=== PATIENT | male | born 1945 | race Caucasian/White ===

== ENCOUNTER 2017-11-20 12:19 | Outpatient (CLI) | payer MEDICARE ==
--- NOTE | 2017-11-20 15:29 | CT ---
CT ABDOMEN AND PELVIS WITHOUT IV CONTRAST: INDICATIONS: History of hematuria and hydronephrosis and surgery for staphylococcus infection in the lower abdomen . COMPARISON: Prior renal ultrasound, dated 10/31/2016, splenic ultrasound, dated 02/23/2004, and also CT thorax, d ated 06/29/2016. FINDINGS: The severe left hydronephrosis is stable to the 2016 examination. There is a prominent left hydroure ter. There is a 9.7 mm stone within the left distal ureter. There is severe diffuse cortical atroph y of the left kidney. There are prominent renal vascular calcifications involving the right kidney. There is a 3 mm calcul us within the mid pole of the right kidney. There is a loculated type effusion involving the left lower hemithorax. There is suspected compressi ve atelectasis involving the left lower lobe. A component of pneumonia cannot be entirely excluded. The previously seen right-sided pleural effusion has resolved. There is a tiny hypodensity within the left hepatic lobe that is stable from 2016, likely reflecting a small cyst. The unopacified pancreas and the right adrenal gland are normal appearing. There is s light hypertrophy of the left adrenal gland, which is stable to the prior. The unopacified spleen is unremarkable. There are scattered colonic diverticula involving the colon without evidence of active diverticulitis . No definite acute osseous abnormality is evident. IMPRESSION: 1. A 9.7 mm stone within the distal left ureter causing stable severe left hydronephrosis and hydrou reter. There is prominent cortical atrophy of the left kidney. This is likely a longstanding obstru ction. 2. Right nephrolithiasis. 3. Loculated left-sided pleural effusion with air space opacity involving the left lower lobe that i s most suspicious for compressive atelectasis; however, pneumonia is not excluded. 4. Moderate sized hiatal hernia. 5. Stable left hepatic lobe cyst. 6. Diverticulosis. POS: [facility]
== END 2017-11-20 12:20 | disposition home or self-care (01) ==
LOC: CT 12:19
PROVIDERS: ATTEND Urology
DX: Z12.5 Encounter for screening for malignant neoplasm of prostate (principal); N13.39 Other hydronephrosis; N20.2 Calculus of kidney with calculus of ureter; N13.4 Hydroureter; J90 Pleural effusion, not elsewhere classified; K44.9 Diaphragmatic hernia without obstruction or gangrene; K76.89 Other specified diseases of liver; K57.90 Diverticulosis of intestine, part unspecified, without perforation or abscess without bleeding
CPT/HCPCS: 74176; G0103

== ENCOUNTER 2018-11-11 13:22 | Outpatient (CLI) | payer MEDICARE ==
--- NOTE | 2018-11-11 15:40 | RAD ---
AP VIEW ABDOMEN: HISTORY: Hydronephrosis. FINDINGS: AP view abdomen demonstrates a large amount of stool in the colon. Marked atherosclerotic calcificat ion of the abdominal aorta and iliac artery is seen. There appear to be bilateral renal pelvic vascular calcifications. There appears to be a radiopaque density over the left pelvis just inferomedial to the inferior aspect of the SI joint. This may repr esent an obstructing distal left ureteral calculus seen on patient's previous CT from 11/20/2017. IMPRESSION: 1. Extensive vascular calcifications. 2. Persistent left likely distal ureteral calculus. 3. Extensive stool throughout a distended colon compatible with severe constipation. POS: [facility]
== END 2018-11-11 13:23 | disposition home or self-care (01) ==
LOC: RAD 13:22
PROVIDERS: ATTEND Urology
DX: N13.30 Unspecified hydronephrosis (principal); I70.0 Atherosclerosis of aorta; I70.8 Atherosclerosis of other arteries; K63.89 Other specified diseases of intestine
CPT/HCPCS: 74018

== ENCOUNTER 2020-06-24 07:31 | Outpatient (CLI) | payer MEDICARE, OTHER ==
[2020-06-24 11:20] LABS: PTT 38.9 sec (22.9-36.1)
[2020-06-24 11:42] LABS: Hemoglobin 14.6 g/dL (14.0-18.0); Mean Corpuscular HGB CONC 31.4 g/dL (32.0-36.0); Mean Corpuscular Hemoglobin 28.8 pg (27.0-31.0); Mean Corpuscular Volume 91.7 fL (78.0-98.0); Mean Platelet Volume 8.8 fL (7.4-10.4); Platelet Count 266 thou/uL (130-400); RBC Distribution Width 15.4 % (11.5-14.5); Red Blood Cell (RBC) Count 5.06 mill/uL (4.70-6.10); White Blood Cell (WBC) Count 12.6 thou/uL (4.8-10.8)
[2020-06-24 12:06] LABS: Anion Gap 16 mmol/L (10-20); BUN (Urea Nitrogen) 24 mg/dL (8.4-25.7); Calc. Creatinine Clearance 0 mL/min (70-130); Calcium 9.4 mg/dL (7.8-10.44); Carbon Dioxide 24 mmol/L (23-31); Chloride 105 mmol/L (98-107); Estimated GFR-MDRD 22; Glucose 110 mg/dL (83-110); Potassium 4.6 mmol/L (3.5-5.1); Sodium 140 mmol/L (136-145)
[2020-06-24 12:27] LABS: Bacteria/HPF None Seen HPF (None Seen); Bilirubin Negative (Negative); Blood, Urine Trace (Negative); Clarity Clear (Clear); Glucose, Urine (Dipstick) 30 mg/dL (Negative); Ketone, Urine Negative (Negative); Leukocyte Negative Leu/uL (Negative); Nitrite Negative (Negative); Protein, Urine (Dipstick) 200 mg/dL (Neg-Trace); RBC/HPF 0-3 HPF (0-3); Specific Gravity, Urine 1.018 (1.002-1.036); Squamous Epithelial None Seen HPF (0-3); Urobilinogen Normal mg/dL (Less than 2)
[2020-06-24 17:49] LABS: SARS-CoV-2 MS2 Positive; SARS-CoV-2 N Gene Negative; SARS-CoV-2 S Gene Negative; SARS-CoV-2 by NAA Not Detected (NotDetected); SARS-CoV-2 orf1ab Negative
== END 2020-06-24 07:32 | disposition home or self-care (01) ==
LOC: LABBT 07:31
PROVIDERS: ATTEND Urology
DX: Z01.818 Encounter for other preprocedural examination (principal); N20.1 Calculus of ureter; Z20.828 Contact with and (suspected) exposure to other viral communicable diseases
CPT/HCPCS: 80048; 81001; 85027; 85610; 85730; 87086; 87635; 93005; 93010; U0003

== ENCOUNTER 2020-06-29 08:06 | Day surgery (SDC) | payer MEDICARE ==
[2020-06-24 12:43] VITALS: BMI 30.2
[2020-06-29] MEDS ORDERED: Fentanyl 100 MCG/2 ML VIAL ONE (10:06)
[2020-06-29] MEDS ORDERED: Iothalamate Meglumine 60% 50 ML VIAL FS ONE (10:42)
[2020-06-29] MEDS ORDERED: Levofloxacin 500 mg/D5W 100 ml Premix Bag ONE (10:47)
[2020-06-29] MEDS ORDERED: HYDROcodone/Acetaminophen 5/325 mg Tablet ONE (12:13)
[2020-06-29] MEDS ORDERED: Oxybutynin 5 MG TAB ONE (12:13)
[2020-06-29] MEDS ORDERED: Ondansetron PF 4 MG/2 ML Vial ONE (14:13)
[2020-06-29] MEDS ORDERED: PROPOFOL 200 MG/20 ML VIAL ONE (14:13)
[2020-06-29] MEDS ORDERED: Lidocaine 1% PF 5 ML VIAL ONE (14:13)
[2020-06-29] MEDS ORDERED: Dexamethasone 20 MG/5 ML VIAL ONE (14:13)
--- NOTE | 2020-06-29 14:28 | RAD ---
Retrograde pyelogram 1 view: 06/29/2020 HISTORY: 75-year-old male with calculus of kidney and left hydronephrosis. FINDINGS: Single image demonstrates a left ureteral stent. Lower curl is to the left of midline in the lower pe lvis. Upper curl overlies the left renal upper pole. There is faint, dilute contrast material within what appears to be a severely dilated left renal collecting system. IMPRESSION: 1.) Left ureteral stent. 2) severe left hydronephrosis.
--- NOTE | 2020-06-29 17:22 | OP ---
DATE OF PROCEDURE: 06/29/2020 PREOPERATIVE DIAGNOSIS: Left ureteral stone. POSTOPERATIVE DIAGNOSES: Left ureteral stone, left ureteral stricture. PROCEDURES PERFORMED: Left ureteroscopy with laser lithotripsy, basket extraction of stone, retrograde pyelogram, intraoperative interpretation of radiologic imaging, 7 x 28 double-J ureteral stent placement. ANESTHESIA: General. COMPLICATIONS: None. ESTIMATED BLOOD LOSS: Minimal. SPECIMEN: Left ureteral stone fragments. DESCRIPTION OF PROCEDURE: After informed consent, the patient was taken to the operating room, transferred to the table under his own power. Anesthesia was established. A time-out was performed, showing the correct patient, site, and procedure. Preoperative antibiotics were administered. He was prepped and draped in the lithotomy position. The semi-rigid ureteroscope was advanced through the urethra into the bladder. The left ureteral orifice was cannulated with a wire, however, this was unable to pass the level of the stone seen on fluoroscopy. The scope was then inserted alongside the wire up to the level of the stone and then the wire removed and passed through the scope around the stone into the proximal ureter and renal pelvis under fluoroscopic guidance. The scope was once again withdrawn and reinserted alongside this now properly placed wire. With some difficulty, I was able to access the stone noting that the stone had become severely impacted. The 365 micron laser fiber was used to carefully trim the stone into small pieces and remove all stone fragments from impaction into the ureteral wall. The 1.9 cm Nitinol basket was used to retrieve all clinically significant stone fragments, which were passed off the specimen. The scope was then negotiated past the area of the impacted stone into the more proximal ureter noting severe hydroureter. Retrograde pyelogram was performed showing severe hydroureter and hydronephrosis down to the transition point at the previous stone location. The scope was then carefully withdrawn and a 7 x 28 double-J ureteral stent passed over the wire with a curl in the kidney and curl in the bladder under fluoroscopic guidance. The bladder was drained with a red rubber catheter. The patient was awoken from anesthesia, transferred back to his hospital bed and taken to PACU in stable condition, where he was discharged home upon recovery. He will follow up in my office in 3 weeks with a renal scan prior for possible stent removal. Job ID: [id number]
--- NOTE | 2020-06-30 07:06 | EKG ---
Test Reason : PREOP Blood Pressure : / mmHG Vent. Rate : 074 BPM Atrial Rate : 054 BPM P-R Int : 000 ms QRS Dur : 102 ms QT Int : 364 ms P-R-T Axes : 000 051 -40 degrees QTc Int : 404 ms Undetermined rhythm probable Atrial fibrillation T wave abnormality, consider inferior ischemia Abnormal ECG No previous ECGs available Confirmed by DR. Anitha CRAWFORD ([id number]) on 06/30/2020 7:06:15 AM Referred By: MJ Confirmed By:DR. Anitha CRAWFORD
== END 2020-06-29 13:45 | disposition home or self-care (01) ==
LOC: SDC 08:06
PROVIDERS: ATTEND Urology
PROC: 0TC78ZZ Extirpation of Matter from Left Ureter, Via Natural or Artificial Opening Endoscopic (ICD-10-PCS; principal; 2020-06-29)
PROC: 0T778DZ Dilation of Left Ureter with Intraluminal Device, Via Natural or Artificial Opening Endoscopic (ICD-10-PCS; 2020-06-29)
DX: N13.2 Hydronephrosis with renal and ureteral calculous obstruction (principal); Z79.899 Other long term (current) drug therapy; Z95.1 Presence of aortocoronary bypass graft
CPT/HCPCS: 74420; 82365; 88300; 93005; 93010; J1100; J1956; J2405; J2704; J3010

== ENCOUNTER 2020-07-16 11:37 | Outpatient (CLI) | payer MEDICARE ==
--- NOTE | 2020-07-16 14:17 | NM ---
Radionucleotide renogram HISTORY: Chronic kidney disease. Evaluate for left kidney function. FINDINGS: 8.7 mCi technetium 99m MAG3. Diuretic not used. Good arterial flow and excretion uptake by the right kidney. Normalized GFR calculated at 265 mL/m. T -max right kidney 5.4 minutes. T half max 27.8 minutes. Over the left renal fossa, only background activity is detected. IMPRESSION : No left renal function detected. Normal function and excretion of the right kidney.
== END 2020-07-16 11:38 | disposition home or self-care (01) ==
LOC: NM 11:37
PROVIDERS: ATTEND Urology
DX: N13.1 Hydronephrosis with ureteral stricture, not elsewhere classified (principal)
CPT/HCPCS: 78707; A9562

== ENCOUNTER 2021-09-09 23:24 | Inpatient (IN) | payer MEDICARE ==
[2021-09-09 23:55] LABS: #Eosinphils 0.3 thou/uL (0.0-0.7); #Lymphocytes 1.4 thou/uL (1.20-3.40); #Monocytes 0.8 thou/uL (0.11-0.59); #Neutrophils 7.8 thou/uL (1.40-6.50); %Basophils 0.1 % (0.0-1.0); %Eosinophils 2.7 % (0.0-10.0); %Lymphocytes 13.9 % (21.0-51.0); %Monocytes 7.3 % (0.0-10.0); Hemoglobin 13.1 g/dL (14.0-18.0); Mean Corpuscular HGB CONC 32.4 g/dL (32.0-36.0); Mean Corpuscular Volume 92.6 fL (78.0-98.0); Mean Platelet Volume 7.8 fL (7.4-10.4); Platelet Count 228 thou/uL (130-400); RBC Distribution Width 15.6 % (11.5-14.5); Red Blood Cell (RBC) Count 4.37 mill/uL (4.70-6.10); White Blood Cell (WBC) Count 10.3 thou/uL (4.8-10.8)
[2021-09-10 00:33] LABS: SARS-CoV-2 NAA Rapid Test Not Detected (NotDetected)
[2021-09-10 00:43] LABS: ALT (SGPT) 13 U/L (8-55); AST (SGOT) 16 U/L (5-34); Albumin 3.8 g/dL (3.4-4.8); Alkaline Phosphatase 77 U/L (40-110); Anion Gap 13 mmol/L (10-20); BUN (Urea Nitrogen) 28 mg/dL (8.4-25.7); Bilirubin, Total 0.4 mg/dL (0.2-1.2); Calc. Creatinine Clearance 0 mL/min (70-130); Calcium 9.3 mg/dL (7.8-10.44); Carbon Dioxide 26 mmol/L (23-31); Chloride 104 mmol/L (98-107); Globulin 3.5 g/dL (2.4-3.5); Glucose 129 mg/dL (83-110); Potassium 4.4 mmol/L (3.5-5.1); Protein, Total 7.3 g/dL (5.8-8.1); Sodium 139 mmol/L (136-145)
[2021-09-10] MEDS ORDERED: Furosemide 20 MG/2 ML VIAL ONE (02:06)
[2021-09-10] MEDS ORDERED: Furosemide 40 MG/4 ML VIAL ONE (02:06)
[2021-09-10 03:36] LABS: Troponin I 0.028 ng/mL (< 0.028)
[2021-09-10 04:10] VITALS: BMI 33.0
[2021-09-10 06:08] LABS: Troponin I 0.021 ng/mL (< 0.028)
[2021-09-10] MEDS ORDERED: HYDROcodone/Acetaminophen 5/325 mg Tablet PO PRN (08:58)
[2021-09-10] MEDS ORDERED: Senokot S 8.6-50 MG TAB PO PRN (08:58)
[2021-09-10] MEDS ORDERED: Acetaminophen 325 MG TAB PO PRN (08:58)
[2021-09-10] MEDS ORDERED: Ondansetron PF 4 MG/2 ML Vial IVP PRN (08:58)
[2021-09-10] MEDS ORDERED: Furosemide 40 MG/4 ML VIAL SLOW IVP SCH (09:15)
[2021-09-10] MEDS: Stress 600 With Zinc 1 TAB PO SCH (10:33)
[2021-09-10] MEDS: Fish Oil 1,000 MG CAP PO SCH (10:33)
[2021-09-10] MEDS ORDERED: Amlodipine 5 MG TAB PO SCH (18:45)
[2021-09-10 19:31] LABS: Anion Gap 13 mmol/L (10-20); BUN (Urea Nitrogen) 29 mg/dL (8.4-25.7); Calc. Creatinine Clearance 27 mL/min (70-130); Calcium 9.3 mg/dL (7.8-10.44); Carbon Dioxide 30 mmol/L (23-31); Chloride 98 mmol/L (98-107); Glucose 136 mg/dL (83-110); Sodium 137 mmol/L (136-145)
[2021-09-10] MEDS: Tamsulosin HCl 0.4 MG CAP PO SCH (20:45)
[2021-09-10] MEDS ORDERED: Rosuvastatin 10 MG TAB PO SCH (21:00)
[2021-09-10 22:18] LABS: Bacteria/HPF None Seen HPF (None Seen); Bilirubin Negative (Negative); Blood, Urine Negative (Negative); Clarity Clear (Clear); Glucose, Urine (Dipstick) Normal (Negative); Ketone, Urine Negative (Negative); Leukocyte Negative Leu/uL (Negative); Nitrite Negative (Negative); Protein, Urine (Dipstick) 10 mg/dL (Neg-Trace); RBC/HPF 0-3 HPF (0-3); Specific Gravity, Urine 1.009 (1.002-1.036); Squamous Epithelial None Seen HPF (0-3); Urobilinogen Normal mg/dL (Less than 2); WBC/HPF None Seen HPF (0-3); pH, Urine 6.5 (5.0-9.0)
[2021-09-10 22:19] LABS: Urine Culture Reflex No No
[2021-09-10 22:33] LABS: Creatinine, Urine 43.63 mg/dL (63-166)
[2021-09-11 05:13] LABS: #Eosinphils 0.3 thou/uL (0.0-0.7); #Lymphocytes 1.9 thou/uL (1.20-3.40); #Monocytes 0.7 thou/uL (0.11-0.59); #Neutrophils 6.4 thou/uL (1.40-6.50); %Basophils 0.4 % (0.0-1.0); %Eosinophils 3.6 % (0.0-10.0); %Neutrophils 68.9 % (42.0-75.0); Hemoglobin 12.6 g/dL (14.0-18.0); Mean Corpuscular HGB CONC 31.2 g/dL (32.0-36.0); Mean Corpuscular Hemoglobin 29.2 pg (27.0-31.0); Mean Corpuscular Volume 93.4 fL (78.0-98.0); Mean Platelet Volume 8.1 fL (7.4-10.4); Platelet Count 239 thou/uL (130-400); RBC Distribution Width 15.5 % (11.5-14.5); Red Blood Cell (RBC) Count 4.31 mill/uL (4.70-6.10); White Blood Cell (WBC) Count 9.3 thou/uL (4.8-10.8)
[2021-09-11 05:34] LABS: ALT (SGPT) 13 U/L (8-55); AST (SGOT) 15 U/L (5-34); Albumin 3.6 g/dL (3.4-4.8); Alkaline Phosphatase 75 U/L (40-110); Anion Gap 14 mmol/L (10-20); BUN (Urea Nitrogen) 28 mg/dL (8.4-25.7); Bilirubin, Total 0.5 mg/dL (0.2-1.2); Calc. Creatinine Clearance 27 mL/min (70-130); Calcium 9.8 mg/dL (7.8-10.44); Carbon Dioxide 30 mmol/L (23-31); Chloride 101 mmol/L (98-107); Globulin 4.1 g/dL (2.4-3.5); Glucose 99 mg/dL (83-110); Potassium 4.2 mmol/L (3.5-5.1); Protein, Total 7.7 g/dL (5.8-8.1); Sodium 141 mmol/L (136-145)
[2021-09-11] MEDS ORDERED: Levothyroxine Sodium 100 MCG TAB PO SCH (06:00)
[2021-09-11] MEDS ORDERED: Regadenoson 0.4 MG/5 ML SYRINGE ONE (08:23)
[2021-09-11] MEDS ORDERED: Aspirin 81 mg Enteric Coated Tablet PO SCH (09:00)
[2021-09-11] MEDS ORDERED: Furosemide 40 MG/4 ML VIAL SLOW IVP SCH (09:00)
[2021-09-11] MEDS ORDERED: Digoxin 0.125 MG TAB PO SCH (09:00)
[2021-09-11] MEDS ORDERED: Amlodipine 10 MG TAB PO SCH (09:00)
[2021-09-11] MEDS ORDERED: Non-Formulary Item 1 EACH (Vitamin B Complex [B Complex] 1 TABLET Tablet) PO SCH (09:00)
[2021-09-11] MEDS: Fish Oil 1,000 MG CAP PO SCH (13:31)
[2021-09-11] MEDS: Tamsulosin HCl 0.4 MG CAP PO SCH (13:32)
[2021-09-11] MEDS: Stress 600 With Zinc 1 TAB PO SCH (13:33)
[2021-09-11 16:00] VITALS: BP 143/70; TEMP 98.2
== END 2021-09-11 17:28 | disposition home or self-care (01) | DRG 291 ==
LOC: ERS 23:24 → 2NO 09-10 02:30
PROVIDERS: ADMIT Internal Medicine; ATTEND Family Medicine
DX: I13.0 Hypertensive heart and chronic kidney disease with heart failure and stage 1 through stage 4 chronic kidney disease, or unspecified chronic kidney disease (principal); I50.33 Acute on chronic diastolic (congestive) heart failure; J96.01 Acute respiratory failure with hypoxia; N18.4 Chronic kidney disease, stage 4 (severe); N17.9 Acute kidney failure, unspecified; C92.11 Chronic myeloid leukemia, BCR/ABL-positive, in remission; Z20.822 Contact with and (suspected) exposure to COVID-19; E78.5 Hyperlipidemia, unspecified; E03.9 Hypothyroidism, unspecified; K21.9 Gastro-esophageal reflux disease without esophagitis; I48.0 Paroxysmal atrial fibrillation; F41.9 Anxiety disorder, unspecified; I25.110 Atherosclerotic heart disease of native coronary artery with unstable angina pectoris; N40.0 Benign prostatic hyperplasia without lower urinary tract symptoms; Z90.49 Acquired absence of other specified parts of digestive tract; Z82.49 Family history of ischemic heart disease and other diseases of the circulatory system; Z87.891 Personal history of nicotine dependence; Z95.1 Presence of aortocoronary bypass graft; Z79.82 Long term (current) use of aspirin; Z79.890 Hormone replacement therapy; Z79.899 Other long term (current) drug therapy; Z80.51 Family history of malignant neoplasm of kidney
CPT/HCPCS: 36415; 71045; 71046; 76770; 78452; 80048; 80053; 81001; 82570; 83880; 84156; 84300; 84484; 84540; 85025; 93005; 93017; 93306; 96374; A9500; J1940; J2785; U0002

== ENCOUNTER 2023-10-12 12:30 | Inpatient (IN) | payer MEDICARE ==
[2023-10-12 12:07] VITALS: BMI 30.2
[2023-10-12 14:20] LABS: Bilirubin Neg (Negative); Blood, Urine 50 (Negative); Clarity Clear (Clear); Glucose, Urine (Dipstick) Normal (Negative); Ketone, Urine Negative (Negative); Leukocyte Negative (Negative); Nitrite Negative (Negative); Protein, Urine (Dipstick) 30 mg/dl (Neg-Trace); Urobilinogen Normal mg/dL (Less than 2)
[2023-10-12 14:25] LABS: Hematocrit 37.2 % (38.8-50.0); Hemoglobin 11.9 g/dL (13.5-17.5); Mean Corpuscular Hemoglobin 30.1 pg (27.0-33.0); Mean Corpuscular Volume 93.9 fl (81.2-95.1); Mean Platelet Volume 10.4 fl (7.4-10.4); Platelet Count 316 10x3/uL (150-450); RBC Distribution Width 14.8 % (11.5-14.5); Red Blood Cell (RBC) Count 3.96 10x6/uL (4.32-5.72)
[2023-10-12 14:50] LABS: ALT (SGPT) 14 U/L (8-55); AST (SGOT) 21 U/L (5-34); Albumin 4.2 g/dL (3.4-4.8); Alkaline Phosphatase 38 U/L (40-110); Anion Gap 17 mmol/L (10-20); BUN (Urea Nitrogen) 30 mg/dL (8.4-25.7); Bilirubin, Total 0.5 mg/dL (0.2-1.2); Calc. Creatinine Clearance 22 mL/min (70-130); Calcium 9.3 mg/dL (7.8-10.44); Carbon Dioxide 24 mmol/L (23-31); Chloride 106 mmol/L (98-107); Estimated GFR 16; Globulin 3.5 g/dL (2.4-3.5); Glucose 105 mg/dL (83-110); Potassium 4.7 mmol/L (3.5-5.1); Protein, Total 7.7 g/dL (5.8-8.1); Sodium 142 mmol/L (136-145)
[2023-10-12 14:52] LABS: INR-International Normal Ratio 1.1; PTT 31.9 sec (22.0-33.0); Prothrombin Time 11.4 sec (9.5-12.1)
[2023-10-17 09:57] LABS: #Basophils 0.1 thou/uL (0.0-0.2); #Eosinphils 0.2 thou/uL (0.0-0.7); #Monocytes 0.5 thou/uL (0.11-0.59); #Neutrophils 6.5 thou/uL (1.40-6.50); %Basophils 0.5 % (0.0-1.0); %Lymphocytes 23.3 % (21.0-51.0); %Monocytes 5.7 % (0.0-10.0); %Neutrophils 68.1 % (42.0-75.0); Hematocrit 36.5 % (42.0-52.0); Hemoglobin 11.5 g/dL (14.0-18.0); Mean Corpuscular HGB CONC 31.5 g/dL (32.0-36.0); Mean Corpuscular Hemoglobin 30.9 pg (27.0-31.0); Mean Corpuscular Volume 98.1 fl (78.0-98.0); Mean Platelet Volume 9.9 fL (7.4-10.4); Platelet Count 286 10x3/uL (130-400); RBC Distribution Width 14.7 % (11.5-14.5); Red Blood Cell (RBC) Count 3.72 mill/uL (4.70-6.10); White Blood Cell (WBC) Count 9.5 10x3/uL (4.8-10.8)
[2023-10-17] MEDS ORDERED: CEFAZOLIN 2 GM VIAL ONE (10:51)
[2023-10-17] MEDS ORDERED: Heparin 10,000 UNITS/ 10 ML VIAL ONE (10:51)
[2023-10-17] MEDS ORDERED: Protamine Sulfate 50 MG/5 ML VIAL ONE (10:51)
[2023-10-17] MEDS ORDERED: Phenylephrine 10 MG/ML VIAL ONE (11:38)
[2023-10-17] MEDS ORDERED: fentaNYL 50 mcg/mL 1 mL Vial ONE ×2 (11:38→13:51)
[2023-10-17] MEDS ORDERED: PROPOFOL 20 ML ONE (11:38)
[2023-10-17] MEDS ORDERED: Rocuronium Bromide 10 MG/ML (10ML VIAL) ONE (11:38)
[2023-10-17] MEDS ORDERED: Lidocaine 1% PF 5 ML VIAL ONE (11:38)
[2023-10-17] MEDS ORDERED: SUGAMMADEX SODIUM 200 MG/2 ML VIAL ONE (13:06)
== END 2023-10-17 17:17 | disposition home or self-care (01) | DRG 274 ==
LOC: SURG A 10-17 08:45
PROVIDERS: ADMIT Internal Medicine Cardiovascular Disease; ATTEND Internal Medicine Cardiovascular Disease
PROC: 02L73DK Occlusion of Left Atrial Appendage with Intraluminal Device, Percutaneous Approach (ICD-10-PCS; principal; 2023-10-17)
PROC: B24BZZ4 Ultrasonography of Heart with Aorta, Transesophageal (ICD-10-PCS; 2023-10-17)
DX: I48.0 Paroxysmal atrial fibrillation (principal); I50.32 Chronic diastolic (congestive) heart failure; C92.10 Chronic myeloid leukemia, BCR/ABL-positive, not having achieved remission; I13.0 Hypertensive heart and chronic kidney disease with heart failure and stage 1 through stage 4 chronic kidney disease, or unspecified chronic kidney disease; Z95.1 Presence of aortocoronary bypass graft; D64.9 Anemia, unspecified; Z79.82 Long term (current) use of aspirin; Z79.899 Other long term (current) drug therapy; I25.10 Atherosclerotic heart disease of native coronary artery without angina pectoris; I25.2 Old myocardial infarction; Z87.891 Personal history of nicotine dependence; N18.9 Chronic kidney disease, unspecified; K21.9 Gastro-esophageal reflux disease without esophagitis; E78.5 Hyperlipidemia, unspecified; E03.9 Hypothyroidism, unspecified; Z90.49 Acquired absence of other specified parts of digestive tract; Z90.89 Acquired absence of other organs
CPT/HCPCS: 33340; 80053; 81003; 85025; 85027; 85347; 85610; 85730; 86850; 86900; 86901; 93005; 93010; 93306; 93312; C1759; C1760; C1894; J1644; J2370; J2704; J2720; J3010

== ENCOUNTER 2023-11-23 11:36 | Outpatient (CLI) | payer MEDICARE ==
[2023-11-23 12:44] LABS: Hemoglobin 12.6 g/dL (13.5-17.5); Mean Corpuscular HGB CONC 31.5 g/dL (32.0-36.0); Mean Corpuscular Hemoglobin 30.2 pg (27.0-33.0); Mean Corpuscular Volume 95.9 fl (81.2-95.1); Platelet Count 338 10x3/uL (150-450); RBC Distribution Width 14.4 % (11.5-14.5); Red Blood Cell (RBC) Count 4.17 10x6/uL (4.32-5.72); White Blood Cell (WBC) Count 9.3 10x3/uL (3.5-10.5)
[2023-11-23 12:59] LABS: Anion Gap 16 mmol/L (10-20); BUN (Urea Nitrogen) 24 mg/dL (8.4-25.7); Calc. Creatinine Clearance 0 mL/min (70-130); Calcium 8.8 mg/dL (7.8-10.44); Carbon Dioxide 22 mmol/L (23-31); Chloride 108 mmol/L (98-107); Estimated GFR 18; Glucose 188 mg/dL (83-110); Potassium 4.2 mmol/L (3.5-5.1); Sodium 142 mmol/L (136-145)
[2023-11-23 13:13] LABS: INR-International Normal Ratio 1.1; PTT 32.5 sec (22.0-33.0); Prothrombin Time 11.5 sec (9.5-12.1)
== END 2023-11-23 11:37 | disposition home or self-care (01) ==
LOC: LABBT 11:36
PROVIDERS: ATTEND Internal Medicine Cardiovascular Disease
DX: Z01.812 Encounter for preprocedural laboratory examination (principal); I48.19 Other persistent atrial fibrillation
CPT/HCPCS: 80048; 85027; 85610; 85730

== ENCOUNTER 2024-09-18 11:34 | Outpatient (CLI) | payer MEDICARE | END 2024-09-18 11:35 | disposition home or self-care (01) | LOC: ULT 11:34 | PROVIDERS: ATTEND Internal Medicine | DX: N17.9 Acute kidney failure, unspecified (principal) | CPT/HCPCS: 76770 ==